=== PATIENT | male | born 1995 | race African-American/Black ===

== ENCOUNTER 2017-09-02 15:30 | Emergency (ER) | payer OTHER, SELFPAY ==
[2017-09-02] MEDS ORDERED: Ketorolac Tromethamine 30 MG/ML VIAL ONE (15:44)
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
[2017-09-02] MEDS ORDERED: Cyclobenzaprine 10 MG TAB ONE (17:09)
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
== END 2017-09-02 17:22 | disposition home or self-care (01) ==
LOC: NAV ERS 15:30
DX: S16.1XXA Strain of muscle, fascia and tendon at neck level, initial encounter (principal); S29.012A Strain of muscle and tendon of back wall of thorax, initial encounter; S40.012A Contusion of left shoulder, initial encounter; J45.909 Unspecified asthma, uncomplicated; V53.5XXA Driver of pick-up truck or van injured in collision with car, pick-up truck or van in traffic accident, initial encounter
CPT/HCPCS: 72040; 72072; 72125; 96374; J1885